=== PATIENT | female | born 1955 | race Caucasian/White ===

== ENCOUNTER 2016-11-17 | Outpatient (CLI) | payer OTHER | END 2016-11-17 13:45 | disposition EMS.NT ==

== ENCOUNTER 2016-11-17 15:35 | Outpatient (CLI) | payer OTHER | END 2016-11-17 15:36 | disposition home or self-care (01) | DX: I95.9 Hypotension, unspecified (principal); R55 Syncope and collapse; E11.9 Type 2 diabetes mellitus without complications ==

== ENCOUNTER 2016-12-03 11:27 | Emergency (ER) | payer OTHER | END 2016-12-03 14:42 | disposition home or self-care (01) | DX: R10.11 Right upper quadrant pain (principal); R10.13 Epigastric pain; K76.0 Fatty (change of) liver, not elsewhere classified; I10 Essential (primary) hypertension; E78.00 Pure hypercholesterolemia, unspecified; J45.909 Unspecified asthma, uncomplicated; E11.9 Type 2 diabetes mellitus without complications; M19.90 Unspecified osteoarthritis, unspecified site ==

== ENCOUNTER 2016-12-04 08:00 | Outpatient (CLI) | payer OTHER | END 2016-12-04 08:01 | disposition home or self-care (01) | DX: D64.9 Anemia, unspecified (principal) ==

== ENCOUNTER 2016-12-09 10:15 | Outpatient (CLI) | payer OTHER ==
[2016-12-09] MEDS ORDERED: SINCALIDE IV ONE (13:00)
[2016-12-09] MEDS ORDERED: SODIUM CHLORIDE 0.9% IV ONE (13:00)
--- NOTE | 2016-12-09 14:31 | Nuclear Medicine Report ---
EXAM: HEPATOBILIARY SCAN WITH CCK/KINEVAC ADMINISTRATION EXAM DATE: 12/09/2016 02:01 PM. CLINICAL HISTORY: ELEVATED LIPASE. COMPARISON: Ultrasound 12/03/2016. TECHNIQUE: Following the intravenous administration of 5 mCi of Tc99m Mebrofenin, a hepatobiliary sca n was done centered on the liver and gallbladder in multiple sequential images and projections. Following the intravenous administration of 1.8 mcg of CCK/ Kinevac over the course of approximately 45 minutes, dynamic imaging was done and the gallbladder ejection fraction was calculated. FINDINGS: Normal extraction of tracer from the blood pool indicating normal hepatocellular function. The liver size and shape is grossly within normal limits. Appearance of tracer in the biliary tree as early as 10 minutes, within normal limits. Appearance of tracer in the gallbladder as early as 10 minutes, within normal limits, with good progr ession of filling throughout the remainder of the initial hour. Appearance of tracer in the small bowel as early as 20 minutes, within normal limits. With CCK administration, the gallbladder demonstrates an effective contraction. The gallbladder eject ion fraction is calculated to be 66%, well above the lower limit of normal of 40% for a 45-minute inj ection. The patient did not report symptoms after CCK administration. No evidence of enteric reflux into the stomach. No significant collection of tracer remaining in the common bile duct by the end of the study. IMPRESSION: 1. Normal uptake and excretion of activity by the liver. 2. Normal filling of the gallbladder and excretion into the bowel. 3. Normal gallbladder ejection fraction of 66%. [facility] Referring Provider Line: [phone] SITE ID: [id number]
== END 2016-12-09 10:16 | disposition home or self-care (01) ==
LOC: DI 10:15
PROVIDERS: ATTEND Physician Assistant Medical
DX: R10.9 Unspecified abdominal pain (principal); R74.8 Abnormal levels of other serum enzymes
CPT/HCPCS: 78227; A9537

== ENCOUNTER 2016-12-10 12:35 | Outpatient (CLI) | payer OTHER | END 2016-12-10 12:36 | disposition home or self-care (01) | DX: R74.8 Abnormal levels of other serum enzymes (principal) ==

== ENCOUNTER 2016-12-14 08:00 | Outpatient (CLI) | payer OTHER | END 2016-12-14 23:59 | disposition home or self-care (01) | DX: D64.9 Anemia, unspecified (principal) ==

== ENCOUNTER 2017-01-04 06:56 | Emergency (ER) | payer OTHER | END 2017-01-04 07:10 | disposition home or self-care (01) | DX: Z77.21 Contact with and (suspected) exposure to potentially hazardous body fluids (principal); W46.1XXA Contact with contaminated hypodermic needle, initial encounter; Y93.F9 Activity, other caregiving; Y99.0 Civilian activity done for income or pay ==

== ENCOUNTER 2017-08-13 09:55 | Outpatient (CLI) | payer OTHER ==
--- NOTE | 2017-08-14 15:37 | Mammography Report ---
DIGITAL SCREENING MAMMOGRAM: 08/13/2017 CLINICAL INDICATION: A 62-year-old with history of bilateral reductions, for screening. COMPARISON: 01/2016, 01/2011. TECHNIQUE: Routine CC and MLO projections were obtained of the breasts. Bilateral laterally exaggera prateek craniocaudal views. FINDINGS: The breasts again demonstrate scattered fibroglandular densities bilaterally. Coarse, typi denae benign calcifications are again present. No suspicious masses, clustered microcalcifications, o r regions of architectural distortion are identified. Postreduction changes are stable. IMPRESSION: BENIGN FINDINGS. RECOMMENDATION: ROUTINE ANNUAL SCREENING UNLESS OTHERWISE CLINICALLY INDICATED. BIRADS CATEGORY 2-BENIGN FINDINGS. STANDARD QUALIFYING STATEMENTS 1. This examination was reviewed with the aid of Computer-Aided Detection (CAD). 2. A negative or benign imaging report should not delay biopsy if clinically suspicious findings are present. Consider surgical consultation if warranted. More than 5% of cancers are not identified by i maging. 3. Dense breasts may obscure an underlying neoplasm. JOB #: [id number] EXT JOB #:[id number]
== END 2017-08-13 09:56 | disposition home or self-care (01) ==
LOC: DI.N 09:55
PROVIDERS: ATTEND Physician Assistant Medical
DX: Z12.31 Encounter for screening mammogram for malignant neoplasm of breast (principal)
CPT/HCPCS: 77067

== ENCOUNTER 2017-08-26 11:18 | Outpatient (CLI) | payer OTHER ==
[2017-08-26 18:06] LABS: BASOPHILS # (AUTO) 0.1 10^3/uL (0.0-0.1); BASOPHILS % (AUTO) 1.1 %; EOSINOPHILS # (AUTO) 0.2 10^3/uL (0.0-0.7); EOSINOPHILS % (AUTO) 2.8 %; HCT - HEMATOCRIT 39.7 % (37.0-47.0); HGB - HEMOGLOBIN 13.1 g/dL (12.0-16.0); LYMPHOCYTES # (AUTO) 1.7 10^3/uL (1.5-3.5); LYMPHOCYTES % (AUTO) 25.4 %; MEAN CORPUSCULAR HEMOGLOBIN 29.6 pg (27.0-31.0); MEAN CORPUSCULAR HGB CONC 33.1 g/dL (32.0-36.0); MEAN CORPUSCULAR VOLUME 89.5 fL (81.0-99.0); MEAN PLATELET VOLUME 8.8 fL (7.9-10.8); MONOCYTES # (AUTO) 0.4 10^3/uL (0.0-1.0); MONOCYTES % (AUTO) 5.4 %; NEUTROPHILS # (AUTO) 4.4 10^3/uL (1.5-6.6); NEUTROPHILS % (AUTO) 65.3 %; NUCLEATED RED BLOOD CELLS AUTO 0.2 /100WBC; RED BLOOD COUNT 4.43 10^6/uL (4.20-5.40); RED CELL DISTRIBUTION WIDTH 13.1 % (12.0-15.0); UNCORRECTED WHITE BLOOD COUNT 6.7 x10^3/uL; WHITE BLOOD COUNT 6.7 x10^3/uL (4.8-10.8)
[2017-08-26 18:41] LABS: PLATELET ESTIMATE, MANUAL NORMAL (130-450,000) (NORMAL); PLATELET MORPHOLOGY 1+ LARGE PLATELETS (NORMAL)
[2017-08-26 18:50] LABS: ALBUMIN/GLOBULIN RATIO 1.1 (1.0-2.2); BILIRUBIN,TOTAL 0.6 mg/dL (0.2-1.0); BUN - BLOOD UREA NITROGEN 12 mg/dL (6-20); CALCIUM 9.4 mg/dL (8.5-10.3); CARBON DIOXIDE - CO2 30 mmol/L (21-32); CHLORIDE 102 mmol/L (101-111); CHOL/HDL RATIO 5.5 (<4.4); CHOLESTEROL 238 mg/dL; CREATININE 0.6 mg/dL (0.4-1.0); GFR - MDRD 101 (>89); GLUCOSE 102 mg/dL (70-100); HDL CHOLESTEROL 43 mg/dL; POTASSIUM 4.4 mmol/L (3.5-5.0); SODIUM 137 mmol/L (135-145); TOTAL PROTEIN 8.2 g/dL (6.7-8.2); TRIGLYCERIDES 105 mg/dL; VLDL CHOLESTEROL 21 mg/dL
[2017-08-26 18:57] LABS: HEMOGLOBIN A1C 0.61 g/dL
== END 2017-08-26 11:19 | disposition home or self-care (01) ==
LOC: LAB.F 11:18
PROVIDERS: ATTEND Physician Assistant Medical
DX: Z00.00 Encounter for general adult medical examination without abnormal findings (principal); I10 Essential (primary) hypertension; E78.5 Hyperlipidemia, unspecified; E55.9 Vitamin D deficiency, unspecified; E11.9 Type 2 diabetes mellitus without complications; Z13.29 Encounter for screening for other suspected endocrine disorder; D64.9 Anemia, unspecified; M25.50 Pain in unspecified joint
CPT/HCPCS: 36415; 80053; 80061; 82306; 83036; 84443; 85025; 85651; 86140; 86430

== ENCOUNTER 2017-10-21 13:20 | Outpatient (CLI) | payer OTHER | END 2017-10-21 13:21 | disposition home or self-care (01) | LOC: SC 13:20 | PROVIDERS: ATTEND Nurse Practitioner Family | DX: G47.33 Obstructive sleep apnea (adult) (pediatric) (principal) | CPT/HCPCS: 99212; 99214 ==

== ENCOUNTER 2018-01-22 17:52 | Outpatient (CLI) | payer OTHER ==
--- NOTE | 2018-01-22 21:23 | XRAY Report ---
EXAM: LEFT KNEE RADIOGRAPHY EXAM DATE: 01/22/2018 06:02 PM. CLINICAL HISTORY: PAIN IN LEFT KNEE. COMPARISON: None. TECHNIQUE: 3 views. FINDINGS: Moderate medial compartment femoral tibial degenerative joint disease with osteophytes and joint space narrowing. Mild lateral compartment femoral tibial osteophytes. Moderate patellofemoral o steophytes. Mild lateral subluxation of the patella at the patellofemoral joint. No dislocation. Knee joint fluid appears within normal limits. No evidence for acute fracture. IMPRESSION: Moderate medial compartment femoral tibial degenerative joint disease with osteophytes an d joint space narrowing. Mild lateral compartment femoral tibial osteophytes. Moderate patellofemoral osteophytes. Mild lateral subluxation of the patella at the patellofemoral joint. No dislocation. Kn ee joint fluid appears within normal limits. No evidence for acute fracture. [facility] Referring Provider Line: [phone] SITE ID: [id number]
== END 2018-01-22 17:53 | disposition home or self-care (01) ==
LOC: DI 17:52
PROVIDERS: ATTEND Nurse Practitioner Family
DX: M17.12 Unilateral primary osteoarthritis, left knee (principal); S83.012A Lateral subluxation of left patella, initial encounter

== ENCOUNTER 2018-02-09 07:56 | Outpatient (CLI) | payer OTHER ==
[2018-02-09 11:51] LABS: BASOPHILS # (AUTO) 0.1 10^3/uL (0.0-0.1); BASOPHILS % (AUTO) 0.7 %; EOSINOPHILS # (AUTO) 0.2 10^3/uL (0.0-0.7); EOSINOPHILS % (AUTO) 2.1 %; HGB - HEMOGLOBIN 13.3 g/dL (12.0-16.0); LYMPHOCYTES # (AUTO) 2.2 10^3/uL (1.5-3.5); LYMPHOCYTES % (AUTO) 28.8 %; MEAN CORPUSCULAR HEMOGLOBIN 29.8 pg (27.0-31.0); MEAN CORPUSCULAR HGB CONC 33.8 g/dL (32.0-36.0); MEAN CORPUSCULAR VOLUME 88.2 fL (81.0-99.0); MEAN PLATELET VOLUME 8.6 fL (7.9-10.8); MONOCYTES # (AUTO) 0.4 10^3/uL (0.0-1.0); MONOCYTES % (AUTO) 5.2 %; NEUTROPHILS # (AUTO) 4.8 10^3/uL (1.5-6.6); NEUTROPHILS % (AUTO) 63.2 %; PLT - PLATELET COUNT 285 10^3/uL (130-450); RED BLOOD COUNT 4.45 10^6/uL (4.20-5.40); RED CELL DISTRIBUTION WIDTH 13.2 % (12.0-15.0); WHITE BLOOD COUNT 7.6 x10^3/uL (4.8-10.8)
[2018-02-09 12:17] LABS: CHOL/HDL RATIO 5.1 (<4.4); CHOLESTEROL 199 mg/dL; HDL CHOLESTEROL 39 mg/dL; LDL CHOLESTEROL,CALCULATED 143 mg/dL; LDL/HDL RATIO 3.7 (<4.4); VLDL CHOLESTEROL 17 mg/dL
[2018-02-09 12:29] LABS: HB2 TOTAL 14.9 g/dL; HEMOGLOBIN A1C 0.61 g/dL; HEMOGLOBIN A1C % 5.9 % (4.6-6.2)
== END 2018-02-09 07:57 | disposition home or self-care (01) ==
LOC: LAB.F 07:56
PROVIDERS: ATTEND Physician Assistant Medical
DX: E78.5 Hyperlipidemia, unspecified (principal); E11.9 Type 2 diabetes mellitus without complications; R23.8 Other skin changes; Z86.2 Personal history of diseases of the blood and blood-forming organs and certain disorders involving the immune mechanism
CPT/HCPCS: 36415; 80061; 82043; 83036; 83721; 84443; 85025

== ENCOUNTER 2018-06-28 09:38 | Outpatient (CLI) | payer OTHER ==
--- NOTE | 2018-06-29 09:50 | XRAY Report ---
Reason: FOOT PAIN 5TH MTP Procedure Date: 06/28/2018 Accession Number: [id number] / [id number] Procedure: XR - Foot 3 View LT CPT Code: FULL RESULT: EXAM: LEFT FOOT RADIOGRAPHY EXAM DATE: 06/28/2018 10:18 AM. CLINICAL HISTORY: Left foot pain fifth metatarsophalangeal joint. COMPARISON: None. TECHNIQUE: 3 views. FINDINGS: Bones: Mild inferior calcaneal enthesopathy is noted. No fractures or bone lesions. Joints: Normal. No subluxations. Soft Tissues: Normal. No soft tissue swelling. IMPRESSION: No fracture or dislocation. [facility]
== END 2018-06-28 09:39 | disposition home or self-care (01) ==
LOC: DI 09:38
PROVIDERS: ATTEND Nurse Practitioner Family
DX: M79.672 Pain in left foot (principal)

== ENCOUNTER 2018-10-26 15:57 | Outpatient (CLI) | payer BC, OTHER | END 2018-10-26 15:58 | disposition home or self-care (01) | LOC: SC 15:57 | PROVIDERS: ATTEND Nurse Practitioner Family | DX: G47.33 Obstructive sleep apnea (adult) (pediatric) (principal) | CPT/HCPCS: 99212; 99214 ==

== ENCOUNTER 2018-11-24 07:44 | Outpatient (CLI) | payer BC ==
[2018-11-24 13:35] LABS: BASOPHILS # (AUTO) 0.1 10^3/uL (0.0-0.1); BASOPHILS % (AUTO) 0.9 %; EOSINOPHILS # (AUTO) 0.2 10^3/uL (0.0-0.7); HGB - HEMOGLOBIN 13.1 g/dL (12.0-16.0); LYMPHOCYTES # (AUTO) 1.7 10^3/uL (1.5-3.5); LYMPHOCYTES % (AUTO) 26.6 %; MEAN CORPUSCULAR HEMOGLOBIN 30.3 pg (27.0-31.0); MEAN CORPUSCULAR HGB CONC 34.3 g/dL (32.0-36.0); MEAN CORPUSCULAR VOLUME 88.3 fL (81.0-99.0); MEAN PLATELET VOLUME 9.3 fL (7.9-10.8); MONOCYTES # (AUTO) 0.3 10^3/uL (0.0-1.0); MONOCYTES % (AUTO) 4.6 %; NEUTROPHILS # (AUTO) 4.1 10^3/uL (1.5-6.6); NEUTROPHILS % (AUTO) 64.9 %; PLT - PLATELET COUNT 296 10^3/uL (130-450); RED BLOOD COUNT 4.33 10^6/uL (4.20-5.40); RED CELL DISTRIBUTION WIDTH 12.9 % (12.0-15.0); WHITE BLOOD COUNT 6.4 x10^3/uL (4.8-10.8)
[2018-11-24 13:43] LABS: ALBUMIN 4.2 g/dL (3.2-5.5); ALBUMIN/GLOBULIN RATIO 1.3 (1.0-2.2); ALKALINE PHOSPHATASE 90 IU/L (42-121); ALT ALANINE AMINOTRANSFERASE 23 IU/L (10-60); AST ASPARTATE AMINOTRANSFERASE 25 IU/L (10-42); BILIRUBIN,TOTAL 0.7 mg/dL (0.2-1.0); BUN - BLOOD UREA NITROGEN 13 mg/dL (6-20); CALCIUM 8.9 mg/dL (8.5-10.3); CARBON DIOXIDE - CO2 29 mmol/L (21-32); CHLORIDE 100 mmol/L (101-111); CHOL/HDL RATIO 5.3 (<4.4); CHOLESTEROL 206 mg/dL; CREATININE 0.5 mg/dL (0.4-1.0); GFR - MDRD 124 (>89); GLUCOSE 98 mg/dL (70-100); HDL CHOLESTEROL 39 mg/dL; LDL CHOLESTEROL,CALCULATED 134 mg/dL; LDL/HDL RATIO 3.4 (<4.4); SODIUM 137 mmol/L (135-145); TOTAL PROTEIN 7.5 g/dL (6.7-8.2); VLDL CHOLESTEROL 33 mg/dL
[2018-11-24 13:47] LABS: HB2 TOTAL 14.5 g/dL; HEMOGLOBIN A1C 0.7 g/dL; HEMOGLOBIN A1C % 6.6 % (4.6-6.2)
== END 2018-11-24 23:59 | disposition home or self-care (01) ==
LOC: LAB.N 07:44
PROVIDERS: ATTEND Nurse Practitioner
DX: E11.319 Type 2 diabetes mellitus with unspecified diabetic retinopathy without macular edema (principal); I10 Essential (primary) hypertension; E78.5 Hyperlipidemia, unspecified
CPT/HCPCS: 36415; 80053; 80061; 83036; 83721; 84443; 85025

== ENCOUNTER 2019-03-04 14:24 | Outpatient (CLI) | payer BC ==
--- NOTE | 2019-03-07 09:22 | Mammography Report ---
Reason: SCREENING MAMMO Procedure Date: 03/04/2019 Accession Number: [id number] / [id number] Procedure: [facility] - Screening Mammo w/Rob CPT Code: FULL RESULT: EXAM: Screening Mammo w/Rob DATE: 03/04/2019 3:08 PM CLINICAL HISTORY: Screening TECHNIQUE: (B) - Bilateral CC and MLO views were obtained. COMPARISON: 08/13/2017 PARENCHYMAL PATTERN: (A) - The breasts demonstrate scattered fibroglandular densities bilaterally. FINDINGS: Bilateral large benign appearing central calcified fat necrosis of no clinical significance. There are no suspicious masses, calcifications, or areas of distortion. IMPRESSION: Negative examination. BI-RADS category 1. RECOMMENDATION: (ANNUAL) - Recommend routine annual screening mammography. BI-RADS CATEGORY: (1) - Negative. STANDARD QUALIFYING STATEMENTS: 1. This examination was not reviewed with the aid of Computer-Aided Detection (CAD). 2. A negative or benign imaging report should not preclude biopsy if clinically suspicious findings are present. 3. Dense breasts may obscure an underlying neoplasm. 4. This examination was reviewed with the aid of 3D breast imaging (tomosynthesis).
== END 2019-03-04 14:25 | disposition home or self-care (01) ==
LOC: DI 14:24
DX: Z12.31 Encounter for screening mammogram for malignant neoplasm of breast (principal)
CPT/HCPCS: 77063; 77067

== ENCOUNTER 2019-04-11 07:03 | Outpatient (CLI) | payer BC ==
--- NOTE | 2019-04-12 09:35 | CT Report ---
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 HISTORY: Headache, nasal obstruction, obstructive sleep apnea. COMPARISONS: HEAD W/O 04/30/2014 10:26 AM. TECHNIQUE: Routine multi-axial CT imaging performed through the sinuses. Iodinated IV contrast: None. Reconstructions: Multiplanar reformats. In accordance with CT protocol optimization, one or more of the following dose reduction techniques were utilized for this exam: automated exposure control, adjustment of mA and/or KV based on patient size, or use of iterative reconstructive technique. FINDINGS: RIGHT Frontal: Trace mucoperiosteal thickening. Ethmoid: Minimal mucoperiosteal thickening. Maxillary: Normal. Sphenoid: Normal. Drainage Pathways: The frontal recess, ostiomeatal complex and sphenoethmoidal recess are patent and normal. LEFT Frontal: Normal. Ethmoid: Minimal mucoperiosteal thickening. Maxillary: Normal. Sphenoid: Normal. Drainage Pathways: The frontal recess, ostiomeatal complex and sphenoethmoidal recess are patent and normal. Nasal Cavity: Mild mucosal thickening right greater than left, nasal cycling. No mass or significant anatomic abnormality evident. Osseous Structures: Unremarkable. Orbits: Unremarkable. Other: There is dental caries in multiple sites, most pronounced in the form of osseous destruction and periodontal disease at tooth 13, see image 4 series 3 as well as image 46 series 5. IMPRESSION: Dental disease including periodontal osseous destruction as described. [facility]
== END 2019-04-11 07:04 | disposition home or self-care (01) ==
LOC: DI 07:03
PROVIDERS: ATTEND Otolaryngology
DX: K02.9 Dental caries, unspecified (principal); M89.8X8 Other specified disorders of bone, other site
CPT/HCPCS: 70486

== ENCOUNTER 2019-07-17 07:16 | Outpatient (CLI) | payer BC ==
[2019-07-17 08:02] LABS: HEMOGLOBIN A1C 0.55 g/dL
[2019-07-17 08:12] LABS: ALBUMIN 4.2 g/dL (3.2-5.5); ALBUMIN/GLOBULIN RATIO 1.4 (1.0-2.2); ALKALINE PHOSPHATASE 72 IU/L (42-121); ALT ALANINE AMINOTRANSFERASE 22 IU/L (10-60); AST ASPARTATE AMINOTRANSFERASE 22 IU/L (10-42); BILIRUBIN,TOTAL 0.5 mg/dL (0.2-1.0); BUN - BLOOD UREA NITROGEN 13 mg/dL (6-20); CALCIUM 8.9 mg/dL (8.5-10.3); CARBON DIOXIDE - CO2 29 mmol/L (21-32); CHLORIDE 102 mmol/L (101-111); CHOL/HDL RATIO 5.3 (<4.4); CHOLESTEROL 218 mg/dL; CREATININE 0.6 mg/dL (0.4-1.0); GFR - MDRD 101 (>89); GLUCOSE 106 mg/dL (70-100); HDL CHOLESTEROL 41 mg/dL; LDL CHOLESTEROL,CALCULATED 161 mg/dL; LDL/HDL RATIO 3.9 (<4.4); SODIUM 139 mmol/L (135-145); TOTAL PROTEIN 7.3 g/dL (6.7-8.2); VLDL CHOLESTEROL 16 mg/dL
[2019-07-17 08:17] LABS: CRP - C-REACTIVE PROTEIN < 1.0 mg/dL (0-1.0)
[2019-07-17 08:29] LABS: THYROID STIMULATING HORMONE 1.94 uIU/mL (0.34-5.60)
[2019-07-17 08:31] LABS: FREE T4 (FREE THYROXINE) 0.82 ng/dL (0.58-1.64)
== END 2019-07-17 07:17 | disposition home or self-care (01) ==
LOC: LAB 07:16
PROVIDERS: ATTEND Nurse Practitioner
DX: E11.319 Type 2 diabetes mellitus with unspecified diabetic retinopathy without macular edema (principal); E78.5 Hyperlipidemia, unspecified; M35.3 Polymyalgia rheumatica
CPT/HCPCS: 36415; 80053; 80061; 83036; 83721; 84439; 84443; 84481; 85651; 86140

== ENCOUNTER 2019-10-29 08:20 | Outpatient (CLI) | payer BC ==
[2019-10-29 08:55] LABS: ALBUMIN 4.1 g/dL (3.2-5.5); ALBUMIN/GLOBULIN RATIO 1.2 (1.0-2.2); BILIRUBIN,TOTAL 0.7 mg/dL (0.2-1.0); CALCIUM 8.9 mg/dL (8.5-10.3); CREATININE 0.6 mg/dL (0.4-1.0); TOTAL PROTEIN 7.6 g/dL (6.7-8.2)
[2019-10-29 09:05] LABS: CREATININE,URINE 120.7 mg/dL; MICROALBUMIN,URINE 0.6 mg/dL (0-300.0)
[2019-10-29 09:10] LABS: HB2 TOTAL 13.8 g/dL; HEMOGLOBIN A1C 0.67 g/dL; HEMOGLOBIN A1C % 6.6 % (4.6-6.2)
== END 2019-10-29 08:21 | disposition home or self-care (01) ==
LOC: LAB 08:20
PROVIDERS: ATTEND Nurse Practitioner
DX: E11.319 Type 2 diabetes mellitus with unspecified diabetic retinopathy without macular edema (principal); I10 Essential (primary) hypertension
CPT/HCPCS: 36415; 80053; 82043; 82570; 83036

== ENCOUNTER 2019-11-09 11:03 | Outpatient (CLI) | payer BC ==
--- NOTE | 2019-11-09 12:21 | SLEEP CARE CONSULTATION ---
Information from patient questionnaire entered by Isela Jamil. I have reviewed and concur with the information entered by Isela Jamil. This document represents the service I personally performed and the decisions made by me, Keila Haider, RN, MSN, DIELECTRIC TESTING MACHINE OPERATOR. History of Present Illness Previous diagnosis: Mild, Obstructive Sleep Apnea-Hypopnea Syndrome AHI: 14.8 Reason for follow up: annual (last seen September 2018) Equipment type: CPAP Equipment obtained from: [employer] (more expensive and informed insurance) Mask style: Nasal (Air Fit N20) Mask brand: Respironics Backup mask available: Yes Last cushion change: a few months ago CPAP Compliance Data - Data Reviewed with Patient Average duration of nightly device use: 8.25 Compliance rate %: 99 (180 days) Current pressure setting (cmH2O): 6 Humidity settin Average residual AHI: 0.9 Subjective Patient concerns: denies: aerophagia, mask discomfort, air blowing in eyes, mask leak noise, condensation in mask/hose, nasal congestion, dry mouth, nose, throat, epistaxis Observed to snore while using device: No Current pressure setting perceived as: comfortable On therapy, patient: reports: sleeping better, awakening more refreshed, being more awake and alert during the day, more rested overall Initial [place] Sleepiness Scale score: 18 Current [place] Sleepiness Scale score: 11 (naps rare ) Allergies and Home Medications Known drug allergies: Yes (see above list ) Home medication list reviewed: Yes (started metformin 500mg bid ) Allergy and home medication list: Medication Name (generic/name brand) Strength & Dosage Alprazolam 0.25mg tab one up to four times daily, prn Ventolin HFA 108 (90 base) mcg/act Two actuations q4hr as needed Lisinopril 10mg tab daily metformin 500mg bid Vitamin D 2000IU tab 10 daily Biotin 5000 5mg cap one daily CoQ10 300mg cap one daily Crispin-E 400mg tab one daily Allergy List Amoxicillin Metronidazole Clarithromycin Percocet Hydrocodone Statins Seasonal Allergies Review of Systems Review of systems same as previous: Yes Physical Exam Blood Pressure: 130/64 Cuff size: long Heart Rate: 67 O2 Saturation: 98 Height: 5 ft 4 in Weight: 203 lb 3.2 oz Weight change since last visit: gained 9 pounds Body Mass Index: 34.9 BMI Classification: Obese Impression and Plan 1. Obstructive Sleep Apnea-Hypopnea Syndrome, moderate, with good treatment compliance and good apnea control. On CPAP therapy, the patient has better sleep quality and is more rested overall. Patient advised to change mask cushion more frequently to reduce mask leaks. Patient has gained weight. Currently patients BMI is 32.5 obesity class. Obesity increases the risk of apnea, CPAP pressure requirements and overall health risks especially cardiovascular and diabetes. Thus patient is advised to lose weight. Weight loss can be done with reducing portion size, reducing refined foods and balancing content with vegetables, fruit and protein. In addition tracking food intake will allow awareness of how to modify diet to achieve weight loss goals. Also eating more slowly will allow more awareness of food intake and enjoyment of food while assisting patient to modify intake at each meal. A diet consultation can be helpful in achieving optimal weight loss goals. The BMI chart was reviewed. The patient would like to reduce to 40 pounds bringing their BMI down to about 27. Patient encouraged to discuss their weight loss goals with their PCP and consider a referral to a planning supervisor. I also gave her a flyer on diabetic classes to discuss with PCP for a referral. These classes have benefitted other patients in weight loss and better blood sugar control. The patient's CPAP pressure range should accommodate some weight loss. Symptoms to report for additional pressure adjustment discussed. Patient's apnea severity and rationale for treatment to reduce apnea, improve sleep quality and reduce cardiovascular and cerebrovascular events was reviewed. I also reviewed the benefit of consistent device use of CPAP for hypertension, diabetes. * Continue CPAP pressure at 6 cmH2O * Change mask cushion more frequently * Notify me if snoring with mask or feeling that the pressure is too much or too little * Attempt to lose weight * Consider a diet consultation * consider diabetic classes * Call this office if any problems using CPAP * Return for follow up in 1 year , or sooner if concerns arise Time Spent with Patient (minutes): 30 I spent 100% of this visit face to face with the patient with greater than 50% of this was spent time counseling the patient and coordination of care.
[2019-11-09 12:22] VITALS: BP 130/64
== END 2019-11-09 11:04 | disposition home or self-care (01) ==
LOC: SC 11:03
PROVIDERS: ATTEND Nurse Practitioner Family
DX: G47.33 Obstructive sleep apnea (adult) (pediatric) (principal); E66.9 Obesity, unspecified; Z68.32 Body mass index [BMI] 32.0-32.9, adult
CPT/HCPCS: 99212; 99214

== ENCOUNTER 2020-04-09 08:27 | Outpatient (CLI) | payer BC ==
[2020-04-09 11:52] LABS: BASOPHILS # (AUTO) 0.1 10^3/uL (0.0-0.1); BASOPHILS % (AUTO) 0.9 %; EOSINOPHILS # (AUTO) 0.2 10^3/uL (0.0-0.7); EOSINOPHILS % (AUTO) 2.6 %; HGB - HEMOGLOBIN 12.8 g/dL (12.0-16.0); LYMPHOCYTES # (AUTO) 1.9 10^3/uL (1.5-3.5); LYMPHOCYTES % (AUTO) 27.5 %; MEAN CORPUSCULAR HEMOGLOBIN 30.5 pg (27.0-31.0); MEAN CORPUSCULAR HGB CONC 32.7 g/dL (32.0-36.0); MEAN CORPUSCULAR VOLUME 93.3 fL (81.0-99.0); MEAN PLATELET VOLUME 10.2 fL (7.9-10.8); MONOCYTES # (AUTO) 0.4 10^3/uL (0.0-1.0); MONOCYTES % (AUTO) 6.4 %; NEUTROPHILS # (AUTO) 4.3 10^3/uL (1.5-6.6); NEUTROPHILS % (AUTO) 62.5 %; PLT - PLATELET COUNT 301 10^3/uL (130-450); RED CELL DISTRIBUTION WIDTH 12.2 % (12.0-15.0); WHITE BLOOD COUNT 6.9 x10^3/uL (4.8-10.8)
[2020-04-09 13:07] LABS: ALBUMIN/GLOBULIN RATIO 1.2 (1.0-2.2); ALKALINE PHOSPHATASE 76 IU/L (42-121); ALT ALANINE AMINOTRANSFERASE 39 IU/L (10-60); AST ASPARTATE AMINOTRANSFERASE 31 IU/L (10-42); BILIRUBIN,TOTAL 0.7 mg/dL (0.2-1.0); BUN - BLOOD UREA NITROGEN 16 mg/dL (6-20); CALCIUM 8.9 mg/dL (8.5-10.3); CARBON DIOXIDE - CO2 30 mmol/L (21-32); CHLORIDE 102 mmol/L (101-111); CHOL/HDL RATIO 6.5 (<4.4); CHOLESTEROL 240 mg/dL; CREATININE 0.6 mg/dL (0.4-1.0); GLUCOSE 96 mg/dL (70-100); HDL CHOLESTEROL 37 mg/dL; LDL CHOLESTEROL,CALCULATED 163 mg/dL; LDL/HDL RATIO 4.4 (<4.4); SODIUM 138 mmol/L (135-145); TOTAL PROTEIN 7.4 g/dL (6.7-8.2); VLDL CHOLESTEROL 40 mg/dL
[2020-04-09 13:16] LABS: HB2 TOTAL 13.5 g/dL; HEMOGLOBIN A1C 0.62 g/dL; HEMOGLOBIN A1C % 6.4 % (4.6-6.2)
== END 2020-04-09 23:59 | disposition home or self-care (01) ==
LOC: LAB.WCP 08:27
PROVIDERS: ATTEND Nurse Practitioner
DX: M35.3 Polymyalgia rheumatica (principal); I10 Essential (primary) hypertension; G47.39 Other sleep apnea; E11.319 Type 2 diabetes mellitus with unspecified diabetic retinopathy without macular edema; E78.5 Hyperlipidemia, unspecified
CPT/HCPCS: 36415; 80053; 80061; 82043; 83036; 83721; 84443; 85025

== ENCOUNTER 2020-10-06 07:00 | Emergency (ER) | payer MEDICARE ==
--- NOTE | 2020-10-06 07:24 | ED Physician Documentation ---
PD HPI DYSPNEA - Stated complaint Stated Complaint: SOA - Chief complaint Chief Complaint: Resp - History obtained from History obtained from: Patient - History of Present Illness Timing - onset: How many weeks ago (1) Timing - onset during: Exertion Timing - duration: Weeks (1) Timing - details: Gradual onset, Still present Inciting event(s): Other (spending much more time inside [place] basement) Improved by: Inhaler/neb Worsened by: Exertion Associated symptoms: Wheezing, Other (feels bloated this week.). No: Fever, Cough, Hemoptysis, Chest pain / discomfort, Palpitations, Diaphoresis, Bilateral edema, Unilateral edema Similar symptoms before: Diagnosis (asthma) Recently seen: Not recently seen - Additional information Additional information: 65-year-old female with a history of type 2 diabetes and mild intermittent asthma has developed increasing exertional dyspnea over the past week. She states that she feels that she is wheezing she is used her inhaler which is almost empty got up a tiny bit of phlegm with that. She does not have a cough or fever. She noticed increased shortness of breath walking out to the mailbox. She denies any chest pain she denies any ankle swelling and she is currently not short of breath here in the emergency department. She states that usually her blood sugars are in the 100-120 range and her A1c last was 6.1. Review of Systems Constitutional: denies: Fever Eyes: denies: Decreased vision Ears: denies: Ear pain Nose: denies: Congestion Throat: denies: Sore throat Cardiac: denies: Chest pain / pressure, Palpitations Respiratory: reports: Dyspnea, Wheezing. 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: Dilation and currettage, Hysterectomy, Breast reduction - Present Medications Home Medications: Ambulatory Orders Medication Instructions Recorded Confirmed Metformin HCl [Glucophage Xr] 750 mg PO QDAC 02/02/13 01/04/17 Biotin 10,000 mcg PO DAILY 01/30/16 01/04/17 Cholecalciferol (Vitamin D3) 1,000 unit PO 5XD 01/30/16 01/04/17 [Vitamin D] [place]-3/Dha/Epa/Fish Oil [Fish Oil 1 each PO DAILY 01/30/16 01/04/17 EC 1,200 mg Softgel] S-Adenosylmethionine Sul Tosyl 100 gm MC DAILY 01/30/16 01/04/17 [Ademetionine Disulfate Tosylat] Vitamin B Complex/Folic Acid 0.4 mg PO DAILY 01/30/16 01/04/17 [Super B Maxi Complex Caplet] Ondansetron HCl [Zofran] 4 mg PO Q6H PRN #20 tablet 12/03/16 01/04/17 Albuterol Sulf [Ventolin Hfa 1 - 2 puffs INH Q4HR PRN #1 inhaler 10/06/20 Inhaler] Furosemide [Lasix] 20 mg PO DAILY #20 tablet 10/06/20 Potassium Chloride 10 meq PO DAILY PM #30 tablet.er 10/06/20 - Allergies Allergies/Adverse Reactions: Allergies Allergy/AdvReac Type Severity Reaction Status Date / Time hydrocodone bitartrate * Allergy Nausea Verified 10/06/20 07:22 [From [place]] trazodone Allergy Unknown Verified 10/06/20 07:22 amoxicillin [Amoxicillin] AdvReac Mild diarrhea Verified 10/06/20 07:22 - Social History Does the pt smoke?: No Smoking Status: Never smoker Does the pt drink ETOH?: No Does the pt have substance abuse?: No - Immunizations Immunizations are current?: Yes - POLST Patient has POLST: No PD ED PE NORMAL - Vitals Vital signs reviewed: Yes (hypertensive) - General General: Alert and oriented X 3, No acute distress, Well developed/nourished - HEENT HEENT: Atraumatic, PERRL, EOMI, Ears normal, Other (dry mucous membranes) - Neck Neck: Supple, no meningeal sign, No bony TTP - Cardiac Cardiac: RRR, No murmur - Respiratory Respiratory: No respiratory distress, Clear bilaterally - Abdomen Abdomen: Normal bowel sounds, Soft, Non tender, Non distended, No organomegaly - Back Back: No CVA TTP, No spinal TTP - Derm Derm: Normal color, Warm and dry, No rash - Extremities Extremities: No deformity, No edema - Neuro Neuro: Alert and oriented X 3, stamping bench die maker 2-12 intact, No motor deficit, No sensory deficit, Normal speech Eye Opening: Spontaneous Motor: Obeys Commands Verbal: Oriented GCS Score: 15 - Psych Psych: Normal mood, Normal affect Results - Vitals Vitals: Vital Signs - 24 hr 10/06/20 10/06/20 10/06/20 07:14 08:01 09:20 Temperature 36.2 C L Heart Rate 74 56 L 69 Respiratory 18 17 20 Rate Blood Pressure 180/66 H 173/78 H 142/63 H O2 Saturation 100 100 10/06/20 10:06 Temperature Heart Rate 71 Respiratory 15 Rate Blood Pressure 150/68 H O2 Saturation 100 Oxygen O2 Source Room air - EKG (time done) 0708 Rate: Rate (enter#) (63) Rhythm: NSR, LAE (considered) Ischemia: Normal ST segments Compare to prior EKG: Unchanged from prior EKG (SPT 12-03-2016 no changes ) Computer interpretation: Agree with computer - Labs Labs: Laboratory Tests 10/06/20 10/06/20 10/06/20 07:58 07:58 07:58 WBC 8.0 RBC 3.90 L Hgb 12.0 Hct 36.0 L MCV 92.3 MCH 30.8 MCHC 33.3 RDW 12.2 Plt Count 261 MPV 9.5 Neut # (Auto) 5.8 Lymph # (Auto) 1.6 [place] # (Auto) 0.4 Eos # (Auto) 0.2 Baso # (Auto) 0.1 Absolute Nucleated RBC 0.00 Nucleated RBC % 0.0 D-Dimer 301.1 H Sodium 140 Potassium 3.9 Chloride 101 Carbon Dioxide 27 Anion Gap 12.0 BUN 12 Creatinine 0.7 Estimated GFR (MDRD) 84 L Glucose 119 H Calcium 8.9 Total Bilirubin 0.7 AST 24 ALT 28 Alkaline Phosphatase 89 Troponin I High Sens B-Natriuretic Peptide Total Protein 7.3 Albumin 4.1 Globulin 3.2 Albumin/Globulin Ratio 1.3 Lipase 23 10/06/20 10/06/20 07:58 07:58 WBC RBC Hgb Hct MCV MCH MCHC RDW Plt Count MPV Neut # (Auto) Lymph # (Auto) [place] # (Auto) Eos # (Auto) Baso # (Auto) Absolute Nucleated RBC Nucleated RBC % D-Dimer Sodium Potassium Chloride Carbon Dioxide Anion Gap BUN Creatinine Estimated GFR (MDRD) Glucose Calcium Total Bilirubin AST ALT Alkaline Phosphatase Troponin I High Sens 4.1 B-Natriuretic Peptide 129 H Total Protein Albumin Globulin Albumin/Globulin Ratio Lipase - Rads (name of study) chest 2 view Radiology: Prelim report reviewed (Impression: Suspect mild fluid overload/CHF.), EMP read indepedently, See rad report CT angio chest Radiology: Prelim report reviewed (Impression: 1. No pulmonary embolism. 2. Diffusely interlobular septal thickening. Trace left pleural effusion. Findings most compatible with mild CHF. 3. A few small pulmonary nodules measuring up to 5 mm. This can be followed up with chest CT in 6 to 12 months depending on risk factors.), Final report received (4. Nonspecific mildly enlarged right paratracheal lymph node. 5. Hepatic steatosis.), EMP read indepedently, See rad report Procedures - IVC sono (time) 0835 Bedside IVC sono: IVC measures (cm) (1.52), Euvolemia PD MEDICAL DECISION MAKING - ED course Complexity details: reviewed old records, reviewed results, re-evaluated patient, considered differential, d/w patient ED course: 65 y/o female with exertional dyspnea and a history of mild intermittent asthma has improvement with a duo-neb treatment and has Evidence on her chest x-ray of potential pulmonary edema trace and this is confirmed with CT angiogram of the chest obtained in evaluation for pulmonary embolism. There are no evidence of pulmonary embolism. Patient's troponin is negative. Her BNP is minimally elevated. Her symptoms are consistent with both asthma and mild congestive failure. Her clinical findings on diagnostic imaging are concerning for CHF. She is given lasix 40g IV and we will place her on a short course of lasix and have her follow up with her primary for referral to cardiology in followup. Departure - Departure Disposition: 01 Home, Self Care Clinical Impression: Congestive heart failure Qualifiers: Heart failure type: unspecified Heart failure chronicity: acute Qualified Code(s): I50.9 - Heart failure, unspecified Condition: Stable Instructions: ED CHF General Follow-Up: Freida Thurman ARNP, COMMUNITY PRODUCT SPECIALIST-C [Primary Care Provider] - Prescriptions: Albuterol Sulf [Ventolin Hfa Inhaler] 1 - 2 puffs INH Q4HR PRN #1 inhaler PRN Reason: Shortness Of Air/Wheezing Furosemide [Lasix] 20 mg PO DAILY #20 tablet Potassium Chloride 10 meq PO DAILY PM #30 tablet.er Comments: Today it appears your shortness of breath is related to acute congestive heart failure. We have given you a dose of Lasix by vein and expect that this will help with your breathing today. We expect it to be easy to control your congestive failure with this diuretic initially and my recommendation is to take it daily for at least 4 days. 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 Follow-up with your primary care doctor for referral.If you develop chest pain and increasing shortness of breath return to the emergency department immediately.
[2020-10-06] MEDS ORDERED: IPRATROPIUM/ALBUTEROL 3 ML NEB INH STA (07:41)
[2020-10-06 08:04] LABS: BASOPHILS # (AUTO) 0.1 10^3/uL (0.0-0.1); BASOPHILS % (AUTO) 0.7 %; EOSINOPHILS # (AUTO) 0.2 10^3/uL (0.0-0.7); EOSINOPHILS % (AUTO) 2.4 %; LYMPHOCYTES # (AUTO) 1.6 10^3/uL (1.5-3.5); LYMPHOCYTES % (AUTO) 19.6 %; MEAN CORPUSCULAR HEMOGLOBIN 30.8 pg (27.0-31.0); MEAN CORPUSCULAR HGB CONC 33.3 g/dL (32.0-36.0); MEAN CORPUSCULAR VOLUME 92.3 fL (81.0-99.0); MEAN PLATELET VOLUME 9.5 fL (7.9-10.8); MONOCYTES # (AUTO) 0.4 10^3/uL (0.0-1.0); MONOCYTES % (AUTO) 4.7 %; NEUTROPHILS # (AUTO) 5.8 10^3/uL (1.5-6.6); NEUTROPHILS % (AUTO) 72.1 %; PLT - PLATELET COUNT 261 10^3/uL (130-450); RED CELL DISTRIBUTION WIDTH 12.2 % (12.0-15.0)
[2020-10-06 08:19] LABS: ALBUMIN 4.1 g/dL (3.2-5.5); ALBUMIN/GLOBULIN RATIO 1.3 (1.0-2.2); BILIRUBIN,TOTAL 0.7 mg/dL (0.2-1.0); CALCIUM 8.9 mg/dL (8.5-10.3); CREATININE 0.7 mg/dL (0.4-1.0); TOTAL PROTEIN 7.3 g/dL (6.7-8.2)
--- NOTE | 2020-10-06 08:34 | XRAY Report ---
PROCEDURE: Chest 2 View X-Ray INDICATIONS: Shortness of breath TECHNIQUE: 2 view(s) of the chest. COMPARISON: None. FINDINGS: Surgical changes and devices: None. Lungs and pleura: No significant pleural effusions. No pneumothorax. Diffuse increased and pulmonary markings bilaterally. No consolidation is identified. Mediastinum: Mediastinal contours are normal. Heart size is normal. Bones and chest wall: No suspicious bony abnormalities. Soft tissues appear unremarkable. IMPRESSION: Suspect mild fluid overload/CHF. Reviewed by: Rogelio Stewart MD on 10/06/2020 7:33 AM [facility] Approved by: Rogelio Stewart MD on 10/06/2020 7:33 AM [facility] Station ID: [id number]
[2020-10-06] MEDS ORDERED: IOVERSOL 320 100 ML VIAL IVP ONE ×2 (08:46→11:02)
--- NOTE | 2020-10-06 09:43 | CT Report ---
PROCEDURE: ANGIO CHEST W/WO INDICATIONS: exertional dyspnea and elevated d-dimer CONTRAST: IV CONTRAST: Optiray 320 ml: 80 PO CONTRAST: *NO PO CONTRAST TECHNIQUE: After the administration of intravenous contrast, 2 mm thick sections acquired from the pulmonary api deisy to the posterior costophrenic angles. 3-dimensional maximum intensity projection (MIP) coronal a nd sagittal reformats were then acquired through the thorax. For radiation dose reduction, the follow ing was used: automated exposure control, adjustment of mA and/or kV according to patient size. COMPARISON: CXR earlier today. FINDINGS: Image quality: Excellent. Pulmonary arteries: Pulmonary arteries are normal in size, and demonstrate no intraluminal filling d efects to suggest central pulmonary embolism. Lungs and pleura: Diffuse interlobular septal thickening. Trace left pleural effusion. Right lower lo be pulmonary nodule measuring 0.5 cm, (6/116). Right lower lobe subpleural pulmonary nodule measuring 0.4 cm, (6/184). No pneumothorax. Central and peripheral airways are patent. Mediastinum: Heart size is normal, without pericardial effusion. Mildly enlarged right lower paratra cheal lymph node with a short axis diameter of 1.1 cm, (5/45). Thoracic aorta is normal in caliber an d enhancement. Esophagus is normal in caliber, without hiatal hernia. Bones and chest wall: Suspected fat necrosis with rim calcification in the left breast. Similar-appe aring smaller area in the right breast. No suspicious bony lesions. Partial ankylosis of the left fou rth and fifth ribs which may be the sequelae of prior trauma. No axillary or supraclavicular adenopa thy. Abdomen: Hepatic steatosis. Visualized upper abdominal solid organs appear normal in the early arter ial phase of enhancement. IMPRESSION: 1. No pulmonary embolism. 2. Diffusely interlobular septal thickening. Trace left pleural effusion. Findings most compatible wi th mild CHF. 3. A few small pulmonary nodules measuring up to 5 mm. This can be followed up with chest CT in 6-12 months depending on risk factors. 4. Nonspecific mildly enlarged right paratracheal lymph node. 5. Hepatic steatosis. Reviewed by: Rogelio Stewart MD on 10/06/2020 8:42 AM [facility] Approved by: Rogelio Stewart MD on 10/06/2020 8:42 AM [facility] Station ID: [id number]
[2020-10-06] MEDS ORDERED: FUROSEMIDE 40 MG/4 ML VIAL IVP STA (10:00)
[2020-10-06 10:07] VITALS: BP 150/68
--- OUTSIDE RECORDS SUMMARY | 2020-10-10 01:50 | EXTERNAL MEDICAL SUMMARY RPT | Continuity of Care Document ---
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 2017-01-04 06:56 CIVILIAN ACTIVITY DONE FOR [facility] INCOME OR PAY 2017-01-04 06:56 CONTACT W AND EXPOSURE TO [facility] POTENTIALLY HAZARDOUS BODY FLUIDS 2017-10-21 13:20 OBSTRUCTIVE SLEEP APNEA (ADULT) [facility] (PEDIATRIC) 2018-01-22 17:52 UNILATERAL PRIMARY [facility] OSTEOARTHRITIS, LEFT KNEE 2018-01-22 17:52 LATERAL SUBLUXATION OF LEFT [facility] PATELLA, INITIAL ENCOUNTER 2018-02-09 07:56 TYPE 2 DIABETES MELLITUS [facility] WITHOUT COMPLICATIONS 2018-02-09 07:56 HYPERLIPIDEMIA, UNSPECIFIED [facility] 2018-02-09 07:56 OTHER SKIN CHANGES [facility] 2018-02-09 07:56 PRSNL HISTORY OF DIS OF THE [facility] BLD/BLD-FORM ORG/IMMUN MECHNSM 2018-06-28 09:38 PAIN IN LEFT FOOT [facility] 2018-10-26 15:57 OBSTRUCTIVE SLEEP APNEA (ADULT) [facility] (PEDIATRIC) 2018-11-24 07:44 TYPE 2 DIABETES W UNSP DIABETIC [facility] RTNOP W/O MACULAR EDEMA 2018-11-24 07:44 HYPERLIPIDEMIA, UNSPECIFIED [facility] 2018-11-24 07:44 ESSENTIAL (PRIMARY) [facility] HYPERTENSION 2019-03-04 14:24 ENCNTR SCREEN MAMMOGRAM FOR [facility] MALIGNANT NEOPLASM OF BREAST 2019-04-11 07:03 DENTAL CARIES, UNSPECIFIED [facility] 2019-04-11 07:03 OTHER SPECIFIED DISORDERS OF [facility] BONE, OTHER SITE 2019-07-17 07:16 TYPE 2 DIABETES W UNSP DIABETIC [facility] RTNOP W/O MACULAR EDEMA 2019-07-17 07:16 HYPERLIPIDEMIA, UNSPECIFIED [facility] 2019-07-17 07:16 POLYMYALGIA RHEUMATICA [facility] 2019-10-29 08:20 TYPE 2 DIABETES W UNSP DIABETIC [facility] RTNOP W/O MACULAR EDEMA 2019-10-29 08:20 ESSENTIAL (PRIMARY) [facility] HYPERTENSION 2019-11-09 11:03 OBESITY, UNSPECIFIED [facility] 2019-11-09 11:03 OBSTRUCTIVE SLEEP APNEA (ADULT) [facility] (PEDIATRIC) 2019-11-09 11:03 BODY MASS INDEX (BMI) [facility] 32.0-32.9, ADULT 2020-04-09 08:27 TYPE 2 DIABETES W UNSP DIABETIC [facility] RTNOP W/O MACULAR EDEMA 2020-04-09 08:27 HYPERLIPIDEMIA, UNSPECIFIED [facility] 2020-04-09 08:27 OTHER SLEEP APNEA [facility] 2020-04-09 08:27 ESSENTIAL (PRIMARY) [facility] HYPERTENSION 2020-04-09 08:27 POLYMYALGIA RHEUMATICA [facility] 2020-10-08 00:00:00 Congestive heart failure, [facility] [place] [facility] 2020-10-08 00:00:00 Heart failure, unspecified [facility] Primary [facility] [place] [facility] 2020-10-08 00:00:00 [facility] [place] [facility] 2020-10-09 00:00:00 Other personal history of [facility] diseases of circulatory system [place] [facility] 2020-10-09 00:00:00 LIPIDS SCREEN [facility] [place] [facility] 2020-10-09 00:00:00 HGBA1C [facility] [place] [facility] 2020-10-09 00:00:00 Family history of diabetes [facility] mellitus [place] [facility] 2020-10-09 00:00:00 Personal history of other [facility] diseases of the circulatory [facility] 2020-10-09 00:00:00 Health-related behavior [facility] [place] [facility] 2020-10-09 00:00:00 Tobacco use and exposure [facility] Primary Care [place] [facility] 2020-10-09 00:00:00 Exercise [facility] 2020-10-09 00:00:00 Never smoker [facility] 2020-10-09 00:00:00 History of ventricular septal On License [facility] Primary Care defect [place] [facility] 2020-10-09 00:00:00 Alcohol use [facility] [place] [facility] 2020-10-09 00:00:00 Tobacco smoking status [facility] Primary Care [place] [facility] 2020-10-09 00:00:00 Total score? [facility] Allergies date description facility SULFA ANTIBIOTICS [facility] NO ALLERGY INFORMATION AVAILABLE [facility] NO KNOWN ALLERGIES [facility] CODEINE [facility] ATORVASTATIN [facility] BUPROPION HCL [facility] HYDROCHLOROTHIAZIDE [facility] HYDROCODONE [facility] LISINOPRIL [facility] OXYCODONE [facility] POVIDONE IODINE [facility] VARENICLINE TARTRATE [facility] ZOLPIDEM [facility] HYDROCODONE-ACETAMINOPHEN [facility] NO KNOWN ENVIRONMENTAL ALLERGIES [facility] SULFA ANTIBIOTICS [facility] PENICILLINS [facility] NO KNOWN ALLERGIES [facility] CODEINE [facility] ATORVASTATIN [facility] hydrocodone bitartrate * [facility] amoxicillin [facility] trazodone [facility] HY[facility]OCODONE [facility] PREDNISONE [facility] LEVOTHYROXINE SODIUM [facility] NO KNOWN ENVIRONMENTAL ALLERGIES [facility] CODEINE [facility] CODEINE [facility] TRAZODONE HCL [facility] Prima [facility] [place] [facility] Medications date description facility 2020-10-08 00:00:00 null [facility] Prim [facility] [place] [facility] 2020-10-08 00:00:00 null [facility] Prim [facility] [place] [facility] 2020-10-08 00:00:00 FUROSEMIDE [facility] Prim [facility]iel [facility] [place] [facility] 2020-10-08 00:00:00 FUROSEMIDE [facility]iel [facility] [place] [facility] Results Social History date description facility 2020-10-09 00:00:00 Never smoker [facility] [place] [facility] Social History date description facility 2020-10-09 00:00:00 Never smoker [facility]iel [facility] [place] [facility] date description facility [id number]
== END 2020-10-06 10:25 | disposition home or self-care (01) ==
LOC: ED 07:00
DX: I50.9 Heart failure, unspecified (principal); I11.0 Hypertensive heart disease with heart failure; J45.20 Mild intermittent asthma, uncomplicated; R91.8 Other nonspecific abnormal finding of lung field; E11.9 Type 2 diabetes mellitus without complications; Z79.84 Long term (current) use of oral hypoglycemic drugs; Z20.822 Contact with and (suspected) exposure to COVID-19
CPT/HCPCS: 36415; 71046; 71275; 80053; 83690; 83880; 84484; 85025; 85379; 93005; 94640; 96374; 99284; Q9967; U0004

== ENCOUNTER 2020-10-13 09:03 | Outpatient (CLI) | payer MEDICARE ==
[2020-10-13 14:00] LABS: CHOL/HDL RATIO 6.1 (<4.4); CHOLESTEROL 264 mg/dL; HDL CHOLESTEROL 43 mg/dL; LDL CHOLESTEROL,CALCULATED 191 mg/dL; LDL/HDL RATIO 4.4 (<4.4); VLDL CHOLESTEROL 30 mg/dL
[2020-10-13 20:07] LABS: HEMOGLOBIN A1c% 6.2 % (4.27-6.07)
== END 2020-10-13 09:04 | disposition home or self-care (01) ==
LOC: LAB.N 09:03
PROVIDERS: ATTEND Family Medicine
DX: E78.5 Hyperlipidemia, unspecified (principal); Z83.3 Family history of diabetes mellitus
CPT/HCPCS: 36415; 80061; 83036; 83721

== ENCOUNTER 2020-11-09 10:37 | Outpatient (CLI) | payer MEDICARE ==
--- NOTE | 2020-11-09 11:22 | SLEEP CARE CONSULTATION ---
Information from patient questionnaire entered by Isela Jamil. I have reviewed and concur with the information entered by Isela Jamil. This document represents the service I personally performed and the decisions made by , Belinda Choi ARNP. History of Present Illness Service Date and Time: 11/09/2020 1037 Previous diagnosis: Mild, Obstructive Sleep Apnea-Hypopnea Syndrome AHI: 14.8 (in 2014) Reason for follow up: annual (last seen 10/2019) Equipment type: CPAP Equipment obtained from: [employer] (But changing to [employer]; [employer] is very expensive and wants to change) Mask style: Nasal Mask brand: Resmed (Air Fit N20) Backup mask available: No (needs to keep old mask with replacement) Last cushion change: over a month Prior sleep studies: Yes Year and Where: 2014 - [facility]; 2006 - [place], [place] Type of Sleep Study: Polysomnography HPI additional information: robert ambrocio was diagnosed to have mild, AHI 14.8, obstructive sleep apnea- hypopnea syndrome and returned today for CPAP therapy annual follow-up. CPAP Compliance Data - Data Reviewed with Patient Average duration of nightly device use: 8 hr 39 min Compliance rate %: 99 (180 days) Current pressure setting (cmH2O): 6 Humidity settin Average residual AHI: 0.7 Subjective Missed days of use due to: reports: other (power outage) Patient concerns: denies: aerophagia, mask discomfort, air blowing in eyes, mask leak noise, condensation in mask/hose, nasal congestion, dry mouth, nose, throat, epistaxis, other Observed to snore while using device: No Current pressure setting perceived as: comfortable On therapy, patient: reports: sleeping better, awakening more refreshed, being more awake and alert during the day, more rested overall. denies: drowsiness while driving Initial [place] Sleepiness Scale score: 18 (in 2014) Current [place] Sleepiness Scale score: 6 Allergies and Home Medications Home medication list reviewed: Yes (Lasix, Lisinopril) Review of Systems Review of systems same as previous: No (Possible CHF) Physical Exam Heart Rate: 63 O2 Saturation: 97 Height: 5 ft 4 in Weight: 188 lb Body Mass Index: 32.2 BMI Classification: Obese Impression and Plan 1. Obstructive Sleep Apnea-Hypopnea Syndrome, mild, with good treatment compliance and good apnea control. On CPAP therapy, the patient has better sleep quality and is more rested overall. Patient does not like [facility] because everything is so expensive and would like to transfer to [facility] for her supplies. I will have my ppap coordinator inform of DME options. A DWO prescription will then be made. Patient advised to contact this office if further supply problems. She has no other issues with CPAP or mask use and is really happy with her CPAP therapy. Patient's apnea severity and rationale for treatment to reduce apnea, improve sleep quality and reduce cardiovascular and cerebrovascular events was reviewed. I also reviewed the benefit of consistent device use of CPAP for hypertension, and diabetes. * Continue CPAP pressure at 6 cmH2O * Transfer DME * Notify me if snoring with mask or feeling that the pressure is too much or too little * Attempt to lose weight * Call this office if any problems using CPAP * Return for follow up in 1 year, or sooner if concerns arise Counseling Topics: Spare mask, Weight loss health impact Visit Type: In Office Time Spent with Patient (minutes): 20 Provider Statement: I spent 100% of the Face to Face Visit with the patient with greater than 50% spent counseling the patient and coordination of care.
== END 2020-11-09 10:38 | disposition home or self-care (01) ==
LOC: SC 10:37
PROVIDERS: ATTEND Nurse Practitioner Family
DX: G47.33 Obstructive sleep apnea (adult) (pediatric) (principal); E66.9 Obesity, unspecified; Z68.32 Body mass index [BMI] 32.0-32.9, adult
CPT/HCPCS: 99213; G0463; 99212

== ENCOUNTER 2021-02-13 13:01 | Outpatient (CLI) | payer MEDICARE ==
[2021-02-13 18:04] LABS: BASOPHILS # (AUTO) 0.1 10^3/uL (0.0-0.1); EOSINOPHILS # (AUTO) 0.1 10^3/uL (0.0-0.7); EOSINOPHILS % (AUTO) 1.6 %; HCT - HEMATOCRIT 38.8 % (37.0-47.0); HGB - HEMOGLOBIN 12.8 g/dL (12.0-16.0); LYMPHOCYTES # (AUTO) 1.9 10^3/uL (1.5-3.5); MEAN CORPUSCULAR HEMOGLOBIN 30.5 pg (27.0-31.0); MEAN CORPUSCULAR VOLUME 92.4 fL (81.0-99.0); MONOCYTES # (AUTO) 0.4 10^3/uL (0.0-1.0); MONOCYTES % (AUTO) 5.2 %; NEUTROPHILS # (AUTO) 4.2 10^3/uL (1.5-6.6); NEUTROPHILS % (AUTO) 63.1 %; PLT - PLATELET COUNT 305 10^3/uL (130-450); RED CELL DISTRIBUTION WIDTH 12.6 % (12.0-15.0); WHITE BLOOD COUNT 6.7 x10^3/uL (4.8-10.8)
[2021-02-13 18:24] LABS: ALBUMIN 4.6 g/dL (3.2-5.5); ALBUMIN/GLOBULIN RATIO 1.4 (1.0-2.2); ALKALINE PHOSPHATASE 72 IU/L (42-121); ALT ALANINE AMINOTRANSFERASE 32 IU/L (10-60); AST ASPARTATE AMINOTRANSFERASE 25 IU/L (10-42); BILIRUBIN,TOTAL 0.7 mg/dL (0.2-1.0); BUN - BLOOD UREA NITROGEN 14 mg/dL (6-20); CALCIUM 9.2 mg/dL (8.5-10.3); CARBON DIOXIDE - CO2 28 mmol/L (21-32); CHLORIDE 100 mmol/L (101-111); CHOL/HDL RATIO 5.2 (<4.4); CHOLESTEROL 246 mg/dL; CREATININE 0.6 mg/dL (0.4-1.0); GFR - MDRD 100 (>89); GLUCOSE 94 mg/dL (70-100); HDL CHOLESTEROL 47 mg/dL; LDL CHOLESTEROL,CALCULATED 180 mg/dL; LDL/HDL RATIO 3.8 (<4.4); POTASSIUM 3.9 mmol/L (3.5-5.0); SODIUM 136 mmol/L (135-145); TOTAL PROTEIN 7.9 g/dL (6.7-8.2); TRIGLYCERIDES 93 mg/dL; VLDL CHOLESTEROL 19 mg/dL
[2021-02-13 18:34] LABS: THYROID STIMULATING HORMONE 1.73 uIU/mL (0.34-5.60)
== END 2021-02-13 13:02 | disposition home or self-care (01) ==
LOC: LAB.N 13:01
PROVIDERS: ATTEND Registered Nurse
DX: I11.0 Hypertensive heart disease with heart failure (principal); I50.9 Heart failure, unspecified; G47.39 Other sleep apnea; E11.319 Type 2 diabetes mellitus with unspecified diabetic retinopathy without macular edema; E78.5 Hyperlipidemia, unspecified
CPT/HCPCS: 36415; 80053; 80061; 81599; 83721; 84443; 84681; 85025; 86341

== ENCOUNTER 2021-04-25 07:45 | Outpatient (CLI) | payer MEDICARE ==
--- NOTE | 2021-04-26 10:50 | Mammography Report ---
BILATERAL DIGITAL SCREENING MAMMOGRAM 3D/2D: 04/25/2021 CLINICAL: Routine screening. Comparison is made to exams dated: 03/04/2019 mammogram, 08/13/2017 mammogram, 02/11/2016 mammogram - [facility], and 02/06/2011 mammogram - [facility]. The tissue o f both breasts is predominantly fatty. There is a new focal asymmetry in the left breast at 7 o'clock posterior depth. No other significant masses, calcifications, or other findings are seen in either breast. IMPRESSION: INCOMPLETE: NEEDS ADDITIONAL IMAGING EVALUATION The new focal asymmetry in the left breast is indeterminate. Additional views with possible ultrasou nd are recommended. This exam was interpreted at Station ID: [id number]. NOTE: For mammograms, a report in lay terms will be sent to the patient. Approximately 15% of breast malignancies will not be visualized mammographically. In the management of a palpable breast mass, a negative mammogram must not discourage biopsy of a clinically suspicious lesion. Electronically Signed By: Nikita Espinosa M.D. jr/:04/25/2021 08:27:19 ACR BI-RADS Category 0: Incomplete 3340F PARENCHYMAL PATTERN: (F) - The breast(s) demonstrate(s) diffuse fatty replacement. BI-RADS CATEGORY: (0) - 0 Mammo and [place] [id number] Immediate follow-up LATERALITY: (B)
== END 2021-04-25 07:46 | disposition home or self-care (01) ==
LOC: DI 07:45
DX: Z12.31 Encounter for screening mammogram for malignant neoplasm of breast (principal); R92.8 Other abnormal and inconclusive findings on diagnostic imaging of breast